=== PATIENT | female | born 1985 | race Caucasian/White ===

== ENCOUNTER 2018-10-01 11:49 | Outpatient (CLI) | payer BC ==
[2018-10-01] VITALS (17 sets, daily range): BP systolic 104–137; BP diastolic 68–95
== END 2018-10-01 23:59 | disposition home or self-care (01) ==
LOC: CARD DIAG 11:49
PROVIDERS: ATTEND Physician Assistant
DX: R55 Syncope and collapse (principal); Z87.891 Personal history of nicotine dependence
CPT/HCPCS: 93660